=== PATIENT | female | born 2000 | race Caucasian/White ===

== ENCOUNTER 2022-06-27 08:00 | Outpatient (CLI) | payer OTHER ==
[2022-06-27 20:57] LABS: BILIRUBIN,URINE NEGATIVE (NEGATIVE); GLUCOSE, URINE (UA) NEGATIVE (NEGATIVE); KETONES,URINE (UA) NEGATIVE (NEGATIVE); LEUKOCYTE ESTERASE, URINE NEGATIVE (NEGATIVE); NITRITE,URINE NEGATIVE (NEGATIVE); OCCULT BLOOD,URINE NEGATIVE (NEGATIVE); PROTEIN,URINE NEGATIVE (NEGATIVE); UROBILINOGEN,URINE 0.2 (NORMAL) E.U./dL (NORMAL)
[2022-06-27 20:58] LABS: CLARITY,URINE CLEAR (CLEAR)
[2022-06-27 21:03] LABS: BACTERIA,URINE Few /HPF (None Seen); RBC,URINE None Seen /HPF (0-5); SQUAMOUS EPITHELIAL CELL,UR FEW Squamous (<= Few); WBC,URINE >25 /HPF (0-5)
[2022-06-27 22:40] LABS: BACTERIAL VAGINOSIS DNA NEGATIVE (NEGATIVE); CANDIDA GLABRATA DNA NEGATIVE (NEGATIVE); CANDIDA GROUP DNA NEGATIVE (NEGATIVE); CANDIDA KRUSEI DNA NEGATIVE (NEGATIVE); TRICHOMONAS VAGINALIS DNA NEGATIVE (NEGATIVE)
== END 2022-06-27 23:58 | disposition home or self-care (01) ==
LOC: LAB.N 08:00
PROVIDERS: ATTEND Emergency Medicine
DX: R30.0 Dysuria (principal)
CPT/HCPCS: 81001; 81514; 87086

== ENCOUNTER 2023-03-18 20:11 | Emergency (ER) | payer OTHER ==
[2023-03-18] MEDS ORDERED: ALBUTEROL NEB 2.5 MG/3 ML INH STA (20:45)
[2023-03-18 21:04] LABS: BASOPHILS # (AUTO) 0.1 10^3/uL (0.0-0.1); BASOPHILS % (AUTO) 0.8 %; EOSINOPHILS # (AUTO) 0.5 10^3/uL (0.0-0.7); EOSINOPHILS % (AUTO) 5.6 %; HCT - HEMATOCRIT 37.2 % (37.0-47.0); HGB - HEMOGLOBIN 11.9 g/dL (12.0-16.0); LYMPHOCYTES # (AUTO) 1.7 10^3/uL (1.5-3.5); LYMPHOCYTES % (AUTO) 18.4 %; MEAN CORPUSCULAR HEMOGLOBIN 29.4 pg (27.0-31.0); MEAN CORPUSCULAR VOLUME 91.9 fL (81.0-99.0); MEAN PLATELET VOLUME 9.5 fL (7.9-10.8); MONOCYTES # (AUTO) 0.4 10^3/uL (0.0-1.0); MONOCYTES % (AUTO) 4.6 %; NEUTROPHILS # (AUTO) 6.4 10^3/uL (1.5-6.6); NEUTROPHILS % (AUTO) 70.4 %; PLT - PLATELET COUNT 315 10^3/uL (130-450); RED BLOOD COUNT 4.05 10^6/uL (4.20-5.40); RED CELL DISTRIBUTION WIDTH 12.1 % (12.0-15.0); WHITE BLOOD COUNT 9.1 x10^3/uL (4.8-10.8)
[2023-03-18 21:14] LABS: CALCIUM 9.1 mg/dL (8.5-10.3); CREATININE 0.7 mg/dL (0.4-1.0); POTASSIUM 3.6 mmol/L (3.5-5.0)
--- NOTE | 2023-03-18 21:49 | ED Physician Documentation ---
PD HPI URI - Stated complaint Stated Complaint: CHEST PX/COUGH - Chief complaint Chief Complaint: Cardiac - History obtained from History obtained from: Patient - Additional information Additional information: HPI from patient. Patient c/o 1-2 weeks of productive cough, one week of chest pain that is distinctly worse with coughing but without pleuritic component. Unknown if fevers at home, but has been having chills and sweats. She has been taking mucinex without improvement. has noted mild dyspnea, worse with exertion. She also notes that today she took a home test with (+) result, did not know she was until taking this test today. Unsure of LMP (periods are always irregular for her). She does note some mild, intermittent suprapubic cramping x 1-2 days. Denies vaginal bleeding. This is her first . Review of Systems Constitutional: reports: Chills, Sweats Ears: denies: Ear pain Nose: reports: Congestion Throat: denies: Sore throat Cardiac: reports: Chest pain / pressure. denies: Palpitations, Pedal edema Respiratory: reports: Cough. denies: Dyspnea, Hemoptysis GI: reports: Reviewed and negative : reports: Now EGA (unknown) Neurologic: denies: Headache PD PAST MEDICAL HISTORY - Past Medical History Past Medical History: No - Present Medications Home Medications: Ambulatory Orders Medication Instructions Recorded Confirmed Escitalopram [Lexapro] 20 mg PO DAILY 03/18/23 03/18/23 Albuterol Sulf [Ventolin Hfa 1 - 2 puffs INH Q4HR PRN #1 each 03/19/23 Inhaler] - Allergies Allergies/Adverse Reactions: Allergies Allergy/AdvReac Type Severity Reaction Status Date / Time No Known Drug Allergies Allergy Verified 03/18/23 20:21 - Living Situation Living Arrangement: reports: At home PD ED PE NORMAL - Vitals Vital signs reviewed: Yes - General General: Alert and oriented X 3, No acute distress, Well developed/nourished - HEENT HEENT: Moist mucous membranes - Neck Neck: Supple, no meningeal sign - Cardiac Cardiac: RRR, No murmur - Respiratory Respiratory: No respiratory distress - Abdomen Abdomen: Soft, Non tender, Non distended - Back Back: No CVA TTP - Extremities Extremities: No edema PD ED PE EXPANDED - Respiratory Respiratory: Wheezing (trace end-expiratory wheezing bilaterally, good air flow) Results - Vitals Vitals: Oxygen O2 Source Room air - Labs Labs: Laboratory Tests 03/18/23 03/18/23 03/18/23 20:59 20:59 20:59 WBC 9.1 RBC 4.05 L Hgb 11.9 L Hct 37.2 MCV 91.9 MCH 29.4 MCHC 32.0 RDW 12.1 Plt Count 315 MPV 9.5 Neut # (Auto) 6.4 Lymph # (Auto) 1.7 [place] # (Auto) 0.4 Eos # (Auto) 0.5 Baso # (Auto) 0.1 Absolute Nucleated RBC 0.00 Nucleated RBC % 0.0 Sodium 137 Potassium 3.6 Chloride 104 Carbon Dioxide 27 Anion Gap 6.0 BUN 13 Creatinine 0.7 Estimated GFR (MDRD) 104 Glucose 86 Calcium 9.1 HCG, Quant 90633.00 Nasal Adenovirus (PCR) Nasal B. parapertussis DNA (PCR) Nasal Coronavir 229E PCR Nasal Coronavir HKU1 PCR Nasal Coronavir NL63 PCR Nasal Coronavir OC43 PCR Nasal Enterovir/Rhinovir PCR Nasal Influenza B PCR Nasal Influenza A PCR Nasal Parainfluen 1 PCR Nasal Parainfluen 2 PCR Nasal Parainfluen 3 PCR Nasal Parainfluen 4 PCR Nasal RSV (PCR) Nasal B.pertussis DNA PCR Nasal C.pneumoniae (PCR) [place] Human Metapneumo PCR Nasal M.pneumoniae (PCR) Nasal SARS-CoV-2 (PCR) 03/18/23 21:20 WBC RBC Hgb Hct MCV MCH MCHC RDW Plt Count MPV Neut # (Auto) Lymph # (Auto) [place] # (Auto) Eos # (Auto) Baso # (Auto) Absolute Nucleated RBC Nucleated RBC % Sodium Potassium Chloride Carbon Dioxide Anion Gap BUN Creatinine Estimated GFR (MDRD) Glucose Calcium HCG, Quant Nasal Adenovirus (PCR) NOT DETECTED Nasal B. parapertussis DNA (PCR) NOT DETECTED Nasal Coronavir 229E PCR NOT DETECTED Nasal Coronavir HKU1 PCR NOT DETECTED Nasal Coronavir NL63 PCR NOT DETECTED Nasal Coronavir OC43 PCR NOT DETECTED Nasal Enterovir/Rhinovir PCR NOT DETECTED Nasal Influenza B PCR NOT DETECTED Nasal Influenza A PCR NOT DETECTED Nasal Parainfluen 1 PCR NOT DETECTED Nasal Parainfluen 2 PCR NOT DETECTED Nasal Parainfluen 3 PCR NOT DETECTED Nasal Parainfluen 4 PCR NOT DETECTED Nasal RSV (PCR) NOT DETECTED Nasal B.pertussis DNA PCR NOT DETECTED Nasal C.pneumoniae (PCR) NOT DETECTED [place] Human Metapneumo PCR NOT DETECTED Nasal M.pneumoniae (PCR) NOT DETECTED Nasal SARS-CoV-2 (PCR) NOT DETECTED - Rads (name of study) chest xray Relevant Findings:: Prelim report reviewed, EMP independent interpretation of test (I reviewed these images and my interpretation is no acute disease including no evidence of pneumonia, pneumothorax. normal cardiac silhouette), See rad report 1st trimester ob US Relevant Findings:: Prelim report reviewed, See rad report PD Medical Decision Making - ED course Complexity details: reviewed results, re-evaluated patient, considered differential, d/w patient ED course: Tests ordered and results reviewed by me: CBC, BMP, respiratory PCR panel, HCG quantitative, CXR, first trimester OB US. Normal CBC and ER abdominal panel. HCG is 24,944. respiratory PCR panel negative for all viruses tested. US shows single IUG , 6w 1d, right ovarian cyst likely corpus luteum , and small perigestational subchorionic hematoma. Patient is given albuterol neb and she reports improvement regarding her dyspnea, and on reexamination of lungs, the wheezing has resolved. Etiology of symptoms is not apparent at this time, but viral URI is strongly suspected Results d/w patient, return precautions reviewed. She is advised to follow up with PMD as well as spreader for reevaluation. Prescription for albuterol MDI is e-prescribed to her pharmacy of choice. Departure - Departure Disposition: 01 Home, Self Care Clinical Impression: First trimester Upper respiratory infection Qualifiers: URI type: unspecified URI Qualified Code(s): J06.9 - Acute upper respiratory infection, unspecified Condition: Good Instructions: Preg 1st Trimester, ED Upper Resp Infec No Abx Tx Prescriptions: Albuterol Sulf [Ventolin Hfa Inhaler] 1 - 2 puffs INH Q4HR PRN #1 each PRN Reason: Shortness Of Air/Wheezing Comments: There were no concerning or diagnostic findings on tonight's blood tests, except for the hormone level which was very elevated consistent with first trimester . The ultrasound shows a healthy intrauterine that is approximately 6 weeks and 1 day old. As we discussed, there is a small amount of blood in the uterus and next to the ; this is called a perigestational subchorionic hematoma. It does not have any specific prognostic value; in other words, it does not portend a poor outcome of the such as a miscarriage. Follow-up with [facility], next available appointment, for reevaluation. The chest x-ray was normal; there was no evidence of infection such as pneumonia. The nasal swab was negative for the viruses that were tested, including COVID and influenza. Your symptoms are consistent with a viral upper respiratory infection (despite the negative nasal swab). The symptoms should resolve over the course of the next several days. I have electronically submitted a prescription for an albuterol inhaler to the [facility] in [place]. Discharge Date/Time: 03/19/23 01:01
--- NOTE | 2023-03-18 21:53 | XRAY Report ---
PROCEDURE: Chest 1 View X-Ray INDICATIONS: cough/congestion TECHNIQUE: One view of the chest was acquired. COMPARISON: None. FINDINGS: Surgical changes and devices: None. Lungs and pleura: No pleural effusions or pneumothorax. Lungs are clear. Mediastinum: Mediastinal contours appear normal. Heart size is normal. Bones and chest wall: No suspicious bony lesions. Overlying soft tissues appear unremarkable. IMPRESSION: No acute cardiopulmonary disease. Reviewed by: Cyrus Whitt MD on 03/18/2023 9:51 PM PDT Approved by: Cyrus Whitt MD on 03/18/2023 9:51 PM PDT Station ID: [id number]
[2023-03-18 22:21] LABS: B. PARAPERTUSSIS- RESP PCR PAN NOT DETECTED; B. PERTUSSIS- RESP PCR PANEL NOT DETECTED; C. PNEUMONIAE- RESP PCR PANEL NOT DETECTED; CORONAVIRUS 229E-RESP PCR NOT DETECTED; CORONAVIRUS HKU1-RESP PCR NOT DETECTED; CORONAVIRUS NL63-RESP PCR NOT DETECTED; CORONAVIRUS OC43-RESP PCR NOT DETECTED; HUMAN METAPNEUMOVIRUS NOT DETECTED; INFLUENZA A- RESP PCR PANEL NOT DETECTED; INFLUENZA B - RESP PCR PANEL NOT DETECTED; M. PNEUMONIAE- RESP PCR PANEL NOT DETECTED; PARAINFLUENZA VIRUS 1 NOT DETECTED; PARAINFLUENZA VIRUS 2 NOT DETECTED; PARAINFLUENZA VIRUS 3 NOT DETECTED; PARAINFLUENZA VIRUS 4 NOT DETECTED; RHINOVIRUS/ENTEROVIRUS NOT DETECTED; RSV- RESP PCR PANEL NOT DETECTED; SARS-CoV-2 -RESP PCR PANEL NOT DETECTED
--- NOTE | 2023-03-19 00:04 | Ultrasound Report ---
PROCEDURE: OB First Trimester w/TV INDICATIONS: , pelvic cramping OUTSIDE/PRIOR DATING DATA: Last menstrual period (LMP): Unknown. First dating scan (date and location): 03/18/2023. Estimated date of delivery (ED[facility]UNDO) from first dating scan: 11/10/2023. TECHNIQUE: Real-time scanning was performed of the fetus and maternal pelvic organs, with image documentation. Endovaginal scanning was also performed to better visualize the fetus and maternal ovaries. COMPARISON: None. FINDINGS: Embryo: There is an intrauterine with a gestational sac, yolk sac, and pole demonstr ated. The crown-rump length measures up to 0.5 cm corresponding to a gestational age of 6 weeks 1 day . There is heart motion with a rate of 108 bpm. There is a small perigestational subchorionic h ematoma measuring up to 1.7 x 0.8 x 1.4 cm. Measurement variability in dating: +/- 4 weeks by LMP, +/- 7 days by mean sac diameter (use before 6 weeks gestation if crown-rump length not able to be measured), +/- 5 days by crown-rump length (6-12 weeks gestation). Maternal organs: Ovaries appear within normal size limits. There is a thick-walled cyst within the r ight ovary measuring up to 2.5 cm with internal septation. No adnexal masses. IMPRESSION: 1. Single living intrauterine with calculated gestational age of 6 weeks 1 day correspondin g to an estimated delivery date of 11/10/2023. 2. Thick-walled right ovarian cyst suggestive of a corpus luteum. 3. Small perigestational subchorionic hematoma. Reviewed by: Cyrus Whitt MD on 03/19/2023 12:02 AM PDT Approved by: Cyrus Whitt MD on 03/19/2023 12:02 AM PDT Station ID: [id number]
[2023-03-19 01:00] VITALS: BP 138/87
== END 2023-03-19 01:01 | disposition home or self-care (01) ==
LOC: ED 20:11
DX: O26.891 Other specified pregnancy related conditions, first trimester (principal); Z3A.01 Less than 8 weeks gestation of pregnancy; J06.9 Acute upper respiratory infection, unspecified; Z20.822 Contact with and (suspected) exposure to COVID-19
CPT/HCPCS: 36415; 80048; 84702; 85025; 87633; 94640; 99284